=== PATIENT | female | born 2000 | race Two or more races ===

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

== ENCOUNTER 2022-01-29 11:19 | Emergency (ER) | payer MEDICAID ==
[~2022-01-29] VITALS: Ht 160 cm; Wt 79.8 kg
[2022-01-29 13:05] LABS: Urine Bacteria NONE SEEN /hpf (None Seen); Urine Blood 3+ /uL (Negative); Urine Mucus FEW (None Seen); Urine Specific Gravity 1.031 (1.001-1.035); Urine WBC 3 /hpf (0 - 5)
[2022-01-29 13:17] VITALS: BP 121/82
== END 2022-01-29 13:19 | disposition home or self-care (01) ==
LOC: ER 11:19
DX: R10.2 Pelvic and perineal pain (principal); R25.2 Cramp and spasm; Z32.02 Encounter for pregnancy test, result negative
CPT/HCPCS: 81001; 81025